=== PATIENT | female | born 1950 | race Caucasian/White ===

== ENCOUNTER 2019-02-14 14:27 | Emergency (ER) | payer BC ==
[2019-02-14] MEDS ORDERED: HYDROcodone/Acetaminophen 10/325 mg Tablet ONE (15:06)
--- NOTE | 2019-02-14 21:14 | RAD ---
LEFT SHOULDER: Date: 02-14-19 FINDINGS: Radiographs show no fracture, dislocation, or AC joint widening. There are some calcifications betwee n the acromion and humeral head that may indicate calcific tendinitis or prior trauma here. There is a little bit of bony spurring in the glenohumeral joint. IMPRESSION: Old changes as noted above. No acute findings. POS: HOME
== END 2019-02-14 15:54 | disposition home or self-care (01) ==
LOC: BURERS 14:27
DX: M25.512 Pain in left shoulder (principal); F32.9 Major depressive disorder, single episode, unspecified; E66.9 Obesity, unspecified; M19.90 Unspecified osteoarthritis, unspecified site; E11.9 Type 2 diabetes mellitus without complications; K58.9 Irritable bowel syndrome, unspecified

== ENCOUNTER 2019-08-23 12:50 | Inpatient (IN) | payer BC, MEDICARE ==
[2019-08-23] MEDS ORDERED: Dicyclomine 20 MG TAB ONE (13:08)
[2019-08-23] MEDS ORDERED: Ondansetron ODT 4 MG TAB ONE (13:08)
[2019-08-23] MEDS ORDERED: Ketorolac Tromethamine 60 MG/2 ML VIAL ONE (13:15)
[2019-08-23 13:47] LABS: #Basophils 0.1 thou/uL (0.0-0.2); #Eosinphils 0.1 thou/uL (0.0-0.7); #Lymphocytes 1.3 thou/uL (1.20-3.40); #Monocytes 1.2 thou/uL (0.11-0.59); #Neutrophils 11.1 thou/uL (1.40-6.50); %Basophils 0.7 % (0.0-1.0); %Eosinophils 0.5 % (0.0-10.0); %Lymphocytes 9.1 % (21.0-51.0); %Neutrophils 80.8 % (42.0-75.0); Hemoglobin 14.4 g/dL (12.0-16.0); Mean Corpuscular HGB CONC 33.3 g/dL (32.0-36.0); Mean Corpuscular Hemoglobin 30.5 pg (27.0-31.0); Mean Corpuscular Volume 91.7 fL (78.0-98.0); Mean Platelet Volume 6.7 fL (7.4-10.4); Platelet Count 350 thou/uL (130-400); RBC Distribution Width 14.8 % (11.5-14.5); White Blood Cell (WBC) Count 13.8 thou/uL (4.8-10.8)
[2019-08-23 14:05] LABS: ALT (SGPT) 13 U/L (8-55); AST (SGOT) 17 U/L (5-34); Albumin 3.6 g/dL (3.4-4.8); Alkaline Phosphatase 82 U/L (40-110); Anion Gap 21 mmol/L (10-20); BUN (Urea Nitrogen) 13 mg/dL (9.8-20.1); Calc. Creatinine Clearance 0 mL/min (70-130); Calcium 8.6 mg/dL (7.8-10.44); Carbon Dioxide 29 mmol/L (23-31); Chloride 99 mmol/L (98-107); Estimated GFR-MDRD 57; Globulin 2.5 g/dL (2.4-3.5); Glucose 154 mg/dL (80-115); Lipase 12 U/L (8-78); Protein, Total 6.1 g/dL (6.0-8.3); Sodium 146 mmol/L (136-145)
[2019-08-23 14:06] LABS: Potassium 2.6 mmol/L (3.5-5.1)
[2019-08-23] MEDS ORDERED: Potassium Chloride 20 MEQ TAB ONE (14:46)
[2019-08-23] MEDS ORDERED: Potassium Chloride 20 MEQ/100 ML PREMIX BAG ONE (14:46)
[2019-08-23 16:37] VITALS: BMI 54.8
[2019-08-23] MEDS ORDERED: Acetaminophen 325 MG TAB PO PRN (17:03)
[2019-08-23] MEDS ORDERED: Ondansetron PF 4 MG/2 ML Vial SLOW IVP PRN (17:03)
[2019-08-23] MEDS ORDERED: Acetaminophen 500 MG TAB PO PRN ×2 (17:41→17:52)
[2019-08-23] MEDS ORDERED: Loperamide HCl 2 MG CAP PO PRN (17:41)
[2019-08-23] MEDS ORDERED: Dulaglutide [Trulicity] 1.5 MG SC SCH (18:15)
[2019-08-23] MEDS: Sodium Chloride 0.9% 1,000 ML IV SCH ×2 (18:48→22:28)
[2019-08-23] MEDS ORDERED: Hydrocortisone 10 mg Tablet PO SCH (21:00)
[2019-08-23] MEDS ORDERED: NABUMETONE 500 MG PO SCH (21:00)
[2019-08-23] MEDS: Atorvastatin Calcium 40 MG TAB PO SCH (22:12)
[2019-08-23] MEDS: Lisinopril 20 MG TAB PO SCH (22:13)
[2019-08-23] MEDS: Acetaminophen/Codeine 30-300mg Tablet PO SCH (22:13)
[2019-08-23] MEDS: Dicyclomine 20 MG TAB PO SCH (22:13)
[2019-08-23] MEDS: Ciprofloxacin 500 MG TAB PO SCH (22:13)
[2019-08-23] MEDS: Nystatin Powder 15 GM BOT TOP PRN (22:14)
[2019-08-23] MEDS: Amlodipine 10 MG TAB PO SCH (22:30)
[2019-08-24] MEDS: Ondansetron ODT 4 MG TAB PO PRN (00:30)
--- NOTE | 2019-08-24 03:29 | HP ---
CHIEF COMPLAINT: Diarrhea. HISTORY OF PRESENT ILLNESS: A 68-year-old female, presented to the [facility] Emergency Department earlier today with complaints of generally feeling poorly for the last 3 to 4 days with complaints of abdominal cramping and gas. She reports a history of irritable bowel syndrome, diarrhea predominant. She was en route to go to her sister's house earlier today and felt worsening GI symptoms so she stopped for Imodium; however, continued to feel worse and drove herself to the emergency department. Prior to leaving her vehicle, she had fecal incontinence. Workup in the emergency department revealed the patient to have mild leukocytosis with left shift along with critical value of potassium level 2.6. Evaluation of the patient overall showed her to be disheveled with morbid obesity and numerous scattered decubitus ulcers involving bilateral buttocks and lower extremities. Secondary to the patient's deconditioned state, need for Wound Care to address her skin ulcerations and need for electrolyte repletion, she has been admitted to the floor. PAST MEDICAL HISTORY: Includes hypertension, dyslipidemia, gastroesophageal reflux disease, hypothyroidism, neuropathy, B12 deficiency, diabetes mellitus, gout, arthritis, irritable bowel syndrome, panhypopituitarism. PAST SURGICAL HISTORY: Lap band in 2007, temporary colostomy in the , and pituitary gland removal in 1987. SOCIAL HISTORY: The patient denies EtOH, smoking, or illicit drug use. She lives alone in [place] and is a . FAMILY HISTORY: Noncontributory. ALLERGIES: DOXYCYCLINE, IODINE, LORAZEPAM, MEPERIDINE, VANCOMYCIN, GUAIFENESIN. HOME MEDICATIONS: 1. Potassium chloride 20 mEq p.o. daily. 2. Trulicity 1.5 mg subcutaneously once a week. 3. Levothyroxine 137 mcg daily. 4. Methocarbamol 750 mg q.4 hours p.r.n. 5. Atorvastatin 40 mg at bedtime. 6. Amlodipine 10 mg daily. 7. Tylenol with codeine 1 tab q.8 hours. 8. Cortef 20 mg q.a.m. 9. Lisinopril 20 mg daily. 10. Allopurinol 200 mg daily. 11. Omeprazole 20 mg daily. 12. Nabumetone 500 mg b.i.d. 13. Magnesium oxide 400 mg daily. 14. Imodium 2 mg p.r.n. 15. Cortef 10 mg at bedtime. 16. Gabapentin 300 mg b.i.d. 17. Ergocalciferol 5000 units daily. 18. Vitamin B12 50 mcg daily. 19. Tylenol 150 mg q.6 hours p.r.n. 20. Hydrochlorothiazide 12.5 mg daily. REVIEW OF SYSTEMS: GENERAL: The patient denies fever. Complaints of fatigue. EARS, NOSE, AND THROAT: Denies sore throat, nasal drainage, or congestion. CARDIOVASCULAR: Denies chest pain or palpitations. RESPIRATORY: Denies shortness of breath or cough. GASTROINTESTINAL: Complains of abdominal pain, nausea, vomiting, and diarrhea. Denies constipation. GENITOURINARY: Denies dysuria. MUSCULOSKELETAL: Complains of chronic joint pain. DERMATOLOGIC: Complaints of multiple decubitus ulcers. NEUROLOGIC: Denies headache. LABORATORY DATA: White blood cell count 13.8, hemoglobin 14.4, hematocrit 43.1, platelets 350. Sodium 146, potassium 2.6, BUN 13, creatinine 0.97, GFR is 57, glucose 154, AST 17, ALT 13, lipase is 12. PHYSICAL EXAMINATION: VITAL SIGNS: Temperature is 98.1, heart rate 70, respiratory rate is 18, oxygen is 97% on room air, blood pressure is 147/63. GENERAL: The patient is morbidly obese with a disheveled appearance. NECK: Supple without lymphadenopathy. CARDIOVASCULAR: Regular rate and rhythm. Normal S1 and S2. RESPIRATORY: Clear to auscultation bilaterally without wheezes, rales, or rhonchi. ABDOMEN: Protuberant with a palpated seroma to the central abdomen. She is mildly tender to the left lower quadrant with no rebound or guarding. EXTREMITIES: Nonpitting edema. No clubbing or cyanosis. SKIN: Intertriginous erythematous rash under her pannus. She has scattered ulcerations to the thighs and buttocks. NEUROLOGIC: Nonfocal with cranial nerves 2 through 12 grossly intact. She has generalized weakness. ASSESSMENT AND PLAN: 1. Hypokalemia. The patient received potassium in the emergency department. We will continue repletion and re-evaluate her labs tomorrow. 2. Diarrhea. This is possibly secondary to the patient's chronic irritable bowel syndrome, diarrhea predominant condition; however, I cannot rule out an infectious etiology at this point secondary to the patient's leukocytosis with left shift. Stool cultures have been ordered along with screening for Clostridium difficile. She has been started on a probiotic with p.r.n. Imodium and ciprofloxacin. She will be continued on normal saline at 75 mL an hour overnight. She will have Zofran p.r.n. nausea. We will also provide Bentyl to serve as an antispasmodic for her gastrointestinal tract. 3. Skin ulcers. We will provide routine wound care. 4. Candidal intertrigo. We will provide nystatin topical powder. 5. Physical deconditioning. We will order Physical Therapy and Occupational therapy. 6. Morbid obesity. The patient does not appear to be a good candidate to provide satisfactory care by herself in her home setting. She has had a prior lap band surgery; however, remains morbidly obese with poor functional status. We will seek Hydroelectric Plant Mechanical Engineer evaluation for potential placement of patient to [place] when able to discharge. 7. Hypertension. The patient is hemodynamically stable. We will resume her home blood pressure medications. 8. Dyslipidemia. We will resume statin therapy. 9. Hypothyroidism. We will resume levothyroxine. 10. Arthritis. The patient is on Tylenol with codeine and is followed by Dr. Thurston for pain management, epidural steroid injections. DISPOSITION: We will seek placement of patient once she is cleared by Therapy, and her electrolytes have normalized along with containment of her diarrheal illness. CODE STATUS: Full. Job ID: [id number] MTDD
[2019-08-24] MEDS: Acetaminophen/Codeine 30-300mg Tablet PO SCH ×3 (05:48→21:33)
[2019-08-24] MEDS: Ciprofloxacin 500 MG TAB PO SCH ×2 (05:48→21:03)
[2019-08-24] MEDS: Levothyroxine Sodium 25 MCG TAB PO SCH (05:48)
[2019-08-24] MEDS: Levothyroxine Sodium 112 MCG TAB PO SCH (05:48)
[2019-08-24 05:50] LABS: #Basophils 0.1 thou/uL (0.0-0.2); #Eosinphils 0.2 thou/uL (0.0-0.7); #Lymphocytes 1.7 thou/uL (1.20-3.40); #Monocytes 0.9 thou/uL (0.11-0.59); #Neutrophils 5.7 thou/uL (1.40-6.50); %Eosinophils 1.8 % (0.0-10.0); %Lymphocytes 19.6 % (21.0-51.0); %Monocytes 10.1 % (0.0-10.0); %Neutrophils 67.5 % (42.0-75.0); Hemoglobin 12.5 g/dL (12.0-16.0); Mean Corpuscular HGB CONC 32.3 g/dL (32.0-36.0); Mean Corpuscular Hemoglobin 30.2 pg (27.0-31.0); Mean Corpuscular Volume 93.3 fL (78.0-98.0); Mean Platelet Volume 6.7 fL (7.4-10.4); Platelet Count 297 thou/uL (130-400); RBC Distribution Width 15.1 % (11.5-14.5); Red Blood Cell (RBC) Count 4.16 mill/uL (4.20-5.40); White Blood Cell (WBC) Count 8.5 thou/uL (4.8-10.8)
[2019-08-24 06:01] LABS: ALT (SGPT) 13 U/L (8-55); AST (SGOT) 14 U/L (5-34); Albumin 3.2 g/dL (3.4-4.8); Alkaline Phosphatase 69 U/L (40-110); Anion Gap 15 mmol/L (10-20); BUN (Urea Nitrogen) 10 mg/dL (9.8-20.1); Bilirubin, Total 0.9 mg/dL (0.2-1.2); Calc. Creatinine Clearance 143 mL/min (70-130); Calcium 7.9 mg/dL (7.8-10.44); Carbon Dioxide 30 mmol/L (23-31); Chloride 102 mmol/L (98-107); Estimated GFR-MDRD 69; Globulin 2.1 g/dL (2.4-3.5); Glucose 112 mg/dL (80-115); Protein, Total 5.3 g/dL (6.0-8.3); Sodium 144 mmol/L (136-145)
[2019-08-24] MEDS ORDERED: Potassium Chloride 20 MEQ TAB PO SCH ×2 (08:00→14:00)
[2019-08-24] MEDS: Potassium Chloride 20 MEQ TAB PO SCH (08:38)
[2019-08-24] MEDS ORDERED: Amlodipine 10 MG TAB PO SCH (09:00)
[2019-08-24] MEDS ORDERED: Hydrocortisone 10 mg Tablet PO SCH (09:00)
[2019-08-24] MEDS ORDERED: Non-Formulary Item 1 EACH (Levothyroxine Sodium [Levothyroxine Sodium] 137 MCG) PO SCH (09:00)
[2019-08-24] MEDS ORDERED: Magnesium Oxide 400 MG TAB PO SCH (09:00)
[2019-08-24] MEDS: Allopurinol 100 MG TAB PO SCH (09:38)
[2019-08-24] MEDS: Dicyclomine 20 MG TAB PO SCH ×4 (09:39→21:02)
[2019-08-24] MEDS: Saccharomyces boulardii 250 MG CAP PO SCH (09:40)
[2019-08-24] MEDS: Enoxaparin Sodium 40 MG/0.4 ML SYRINGE SC SCH (09:40)
[2019-08-24] MEDS: METHOCARBAMOL 750 MG PO PRN ×2 (10:39→18:54)
[2019-08-24] MEDS ORDERED: HYDROCORTISONE 10 MG PO SCH (16:00)
[2019-08-24] MEDS: HYDROCORTISONE 10 MG PO SCH (18:50)
[2019-08-24] MEDS: Amlodipine 10 MG TAB PO SCH (21:02)
[2019-08-24] MEDS: Lisinopril 20 MG TAB PO SCH (21:03)
[2019-08-24] MEDS: Atorvastatin Calcium 40 MG TAB PO SCH (21:03)
[2019-08-24] MEDS: Nystatin Powder 15 GM BOT TOP PRN (21:06)
[2019-08-25 04:33] LABS: #Basophils 0.1 thou/uL (0.0-0.2); #Eosinphils 0.3 thou/uL (0.0-0.7); #Lymphocytes 1.8 thou/uL (1.20-3.40); #Monocytes 0.8 thou/uL (0.11-0.59); #Neutrophils 4.8 thou/uL (1.40-6.50); %Basophils 1.4 % (0.0-1.0); %Eosinophils 3.3 % (0.0-10.0); %Lymphocytes 23.6 % (21.0-51.0); %Monocytes 10.3 % (0.0-10.0); %Neutrophils 61.4 % (42.0-75.0); Hemoglobin 12.4 g/dL (12.0-16.0); Mean Corpuscular HGB CONC 31.7 g/dL (32.0-36.0); Mean Corpuscular Hemoglobin 29.9 pg (27.0-31.0); Mean Corpuscular Volume 94.4 fL (78.0-98.0); Mean Platelet Volume 6.5 fL (7.4-10.4); Platelet Count 315 thou/uL (130-400); Red Blood Cell (RBC) Count 4.14 mill/uL (4.20-5.40); White Blood Cell (WBC) Count 7.8 thou/uL (4.8-10.8)
[2019-08-25 04:41] LABS: Anion Gap 17 mmol/L (10-20); BUN (Urea Nitrogen) 8 mg/dL (9.8-20.1); Calc. Creatinine Clearance 129 mL/min (70-130); Calcium 8.1 mg/dL (7.8-10.44); Carbon Dioxide 27 mmol/L (23-31); Chloride 105 mmol/L (98-107); Estimated GFR-MDRD 61; Glucose 112 mg/dL (80-115); Potassium 3.5 mmol/L (3.5-5.1); Sodium 145 mmol/L (136-145)
[2019-08-25] MEDS: Acetaminophen/Codeine 30-300mg Tablet PO SCH ×3 (06:22→21:31)
[2019-08-25] MEDS: Levothyroxine Sodium 112 MCG TAB PO SCH (06:22)
[2019-08-25] MEDS: Levothyroxine Sodium 25 MCG TAB PO SCH (06:22)
[2019-08-25] MEDS: Ciprofloxacin 500 MG TAB PO SCH ×2 (06:22→19:53)
[2019-08-25] MEDS: Saccharomyces boulardii 250 MG CAP PO SCH (08:13)
[2019-08-25] MEDS: Dicyclomine 20 MG TAB PO SCH ×4 (08:14→19:52)
[2019-08-25] MEDS: Allopurinol 100 MG TAB PO SCH (08:14)
[2019-08-25] MEDS: Potassium Chloride 20 MEQ TAB PO SCH (08:15)
[2019-08-25] MEDS: Enoxaparin Sodium 40 MG/0.4 ML SYRINGE SC SCH (08:18)
[2019-08-25] MEDS: HYDROCORTISONE 10 MG PO SCH ×2 (08:25→17:56)
[2019-08-25] MEDS ORDERED: HYDROCORTISONE 10 MG PO SCH (15:00)
[2019-08-25] MEDS: Atorvastatin Calcium 40 MG TAB PO SCH (19:52)
[2019-08-25] MEDS: Lisinopril 20 MG TAB PO SCH (19:52)
[2019-08-25] MEDS: Amlodipine 10 MG TAB PO SCH (19:53)
[2019-08-25] MEDS: METHOCARBAMOL 750 MG PO PRN (21:31)
[2019-08-26 04:55] LABS: Hemoglobin 12.5 g/dL (12.0-16.0); Platelet Count 216 thou/uL (130-400)
[2019-08-26 05:04] LABS: Anion Gap 17 mmol/L (10-20); BUN (Urea Nitrogen) 9 mg/dL (9.8-20.1); Calc. Creatinine Clearance 140 mL/min (70-130); Calcium 8.3 mg/dL (7.8-10.44); Carbon Dioxide 21 mmol/L (23-31); Chloride 108 mmol/L (98-107); Estimated GFR-MDRD 67; Glucose 120 mg/dL (80-115); Potassium 4.4 mmol/L (3.5-5.1); Sodium 142 mmol/L (136-145)
[2019-08-26] MEDS: Levothyroxine Sodium 25 MCG TAB PO SCH (05:44)
[2019-08-26] MEDS: Ciprofloxacin 500 MG TAB PO SCH (05:44)
[2019-08-26] MEDS: Acetaminophen/Codeine 30-300mg Tablet PO SCH ×3 (05:44→20:59)
[2019-08-26] MEDS: Levothyroxine Sodium 112 MCG TAB PO SCH (05:44)
[2019-08-26] MEDS: Potassium Chloride 20 MEQ TAB PO SCH (08:57)
[2019-08-26] MEDS: Saccharomyces boulardii 250 MG CAP PO SCH (08:57)
[2019-08-26] MEDS: Allopurinol 100 MG TAB PO SCH (08:58)
[2019-08-26] MEDS: Dicyclomine 20 MG TAB PO SCH ×4 (08:58→20:58)
[2019-08-26] MEDS: Enoxaparin Sodium 40 MG/0.4 ML SYRINGE SC SCH (08:58)
[2019-08-26] MEDS: HYDROCORTISONE 10 MG PO SCH ×2 (08:59→18:22)
[2019-08-26] MEDS: Ondansetron ODT 4 MG TAB PO PRN (09:40)
[2019-08-26] MEDS: METHOCARBAMOL 750 MG PO PRN (12:36)
[2019-08-26] MEDS ORDERED: Polyethylene Glycol 3350 17 GM Packet PO SCH (17:15)
[2019-08-26] MEDS: Amlodipine 10 MG TAB PO SCH (20:58)
[2019-08-26] MEDS: Atorvastatin Calcium 40 MG TAB PO SCH (20:58)
[2019-08-26] MEDS: Lisinopril 20 MG TAB PO SCH (21:00)
[2019-08-27] MEDS: Acetaminophen/Codeine 30-300mg Tablet PO SCH ×2 (05:37→13:33)
[2019-08-27] MEDS: Levothyroxine Sodium 112 MCG TAB PO SCH (05:39)
[2019-08-27] MEDS: Levothyroxine Sodium 25 MCG TAB PO SCH (05:39)
[2019-08-27 06:01] LABS: #Basophils 0.1 thou/uL (0.0-0.2); #Eosinphils 0.2 thou/uL (0.0-0.7); #Monocytes 0.7 thou/uL (0.11-0.59); #Neutrophils 4.7 thou/uL (1.40-6.50); %Basophils 1.2 % (0.0-1.0); %Eosinophils 2.8 % (0.0-10.0); %Lymphocytes 25.5 % (21.0-51.0); %Monocytes 9.6 % (0.0-10.0); %Neutrophils 60.9 % (42.0-75.0); Hemoglobin 12.8 g/dL (12.0-16.0); Mean Corpuscular HGB CONC 30.9 g/dL (32.0-36.0); Mean Corpuscular Hemoglobin 29.3 pg (27.0-31.0); Mean Corpuscular Volume 94.9 fL (78.0-98.0); Mean Platelet Volume 6.7 fL (7.4-10.4); Platelet Count 300 thou/uL (130-400); RBC Distribution Width 14.9 % (11.5-14.5); Red Blood Cell (RBC) Count 4.37 mill/uL (4.20-5.40); White Blood Cell (WBC) Count 7.8 thou/uL (4.8-10.8)
[2019-08-27 06:06] LABS: Anion Gap 16 mmol/L (10-20); BUN (Urea Nitrogen) 9 mg/dL (9.8-20.1); Calc. Creatinine Clearance 138 mL/min (70-130); Calcium 8.8 mg/dL (7.8-10.44); Carbon Dioxide 26 mmol/L (23-31); Chloride 104 mmol/L (98-107); Estimated GFR-MDRD 63; Glucose 111 mg/dL (80-115); Potassium 4.5 mmol/L (3.5-5.1); Sodium 141 mmol/L (136-145)
[2019-08-27 06:42] VITALS: BP 154/78; TEMP 98.2
[2019-08-27] MEDS ORDERED: Polyethylene Glycol 3350 17 GM Packet PO SCH (09:00)
[2019-08-27] MEDS: Potassium Chloride 20 MEQ TAB PO SCH (09:54)
[2019-08-27] MEDS: Allopurinol 100 MG TAB PO SCH (09:55)
[2019-08-27] MEDS: HYDROCORTISONE 10 MG PO SCH (10:00)
[2019-08-27] MEDS: Saccharomyces boulardii 250 MG CAP PO SCH (10:57)
[2019-08-27] MEDS: Dicyclomine 20 MG TAB PO SCH ×2 (10:57→13:35)
[2019-08-27] MEDS: Enoxaparin Sodium 40 MG/0.4 ML SYRINGE SC SCH (10:57)
[2019-08-29] MEDS ORDERED: Dulaglutide [Trulicity] 1.5 MG SC SCH (09:00)
--- NOTE | 2019-08-30 03:52 | PQF ---
[employer] Solar Electric Installer Crystal Reports Winform ViewerREESE ANDREI GIULIA FUENTES [id number] CLINICAL DOCUMENTATION CLARIFICATION FORM: POST DISCHARGE Addendum to original discharge summary date: 08/27/19 Late entry note date: 08/30/19 DATE:08/30/2019 ATTN:GIULIA SPEARS Please exercise your independent, professional judgment in responding to the clarification form. Clinical indicators are provided on the bottom of this form for your review Please check appropriate box(s): Kindly Clarify Etiology of diarrhea [ x] Diarrhea due to Irritable bowel syndrome [ ] Diarrhea due to Infectious colitis due to clostridium difficile [ ] Diarrhea due to Viral gastroenteritis [ ] Other diagnosis [ ] Unable to determine In addition, please specify: Present on Admission (POA): [x ] Yes [ ] No [ ] Unable to determine For continuity of documentation, please document condition throughout progress notes and discharge summary. Thank You. CLINICAL INDICATORS - SIGNS / SYMPTOMS / LABS Feeling poorly for the last 3 to 4 days with complaint of abdominal cramping and gas - Documented in H&P on 08/23 by GIULIA SPEARS diarrhea possibly 2/2 chronic IBS - Documented in H&P on 08/23 by GIULIA SPEARS however cannot rule out an infectious etiology 2/2 leukocytosis with left shift - Documented in H&P on 08/23 by GIULIA SPEARS Also stool cultures have been ordered along with screening for clostridium difficile - Documented in H&P on 08/23 by GIULIA SPEARS RISK FACTORS HTN GERD TREATMENTS: started on a probiotic with p.r.n Imodium & ciprofloxacin - Documented in H&P on 08/23 by GIULIA SPEARS She will be continued on normal saline at 75 ml an hour - Documented in H&P on 08/23 by GIULIA SPEARS We also provide Bentyl to severe as an antispasmodic for her GI tract - Documented in H&P on 08/23 by GIULIA SPEARS Solar Electric Installer [employer] Winform Viewer (This form is maintained as a part of the permanent medical record) 2014 [employer]. All Rights Reserved [email or web address] [not provided] MTDD
--- NOTE | 2019-08-30 04:21 | PQF ---
[employer] Database Security Expert Crystal Reports Winform ViewerREESE GIULIA BRUCE [id number] CLINICAL DOCUMENTATION CLARIFICATION FORM: POST DISCHARGE Addendum to original discharge summary date: 08/27/19 Late entry note date: 08/30/19 DATE: 08/30/2019 ATTN:GIULIA SPEARS Please exercise your independent, professional judgment in responding to the clarification form. Clinical indicators are provided on the bottom of this form for your review Please check appropriate box(s): ____x___ I (concur) with the Wound Care findings as stated below. [ ] Pressure Ulcer: (Stage I: Erythema; Stage II: Partial thickness; Stage III : Full thickness; Stage IV: Necrosis to muscle/bone) [ ] Location: Thighs POA: [ x ] Yes [ ] No[ ] Unable to determine Stage (I to IV): (Left Right Bilateral N/A ) [ ] Location: Buttocks POA: [ x ] Yes [ ] No [ ] Unable to determine Stage (I to IV): (Left Right___x__ Bilateral N/A ) [ ] Gangrene present [ ] Yes [ ] ischemic gangrene [ ] gas gangrene [ ] No [ ] No pressure ulcer diagnosis [ ] Deep tissue injury [ ] Other diagnosis [ ] Unable to determine In addition, please specify: Present on Admission (POA): [x ] Yes [ ] No [ ] Unable to determine For continuity of documentation, please document condition throughout progress notes and discharge summary. Thank You. CLINICAL INDICATORS - SIGNS / SYMPTOMS / LABS She has scattered ulceration to the thighs and buttocks - Documented in H&P on 08/23 by GIULIA SPEARS Patient has abdominal and bilateral upper and lower extremity folds with noted redness and moisture - Documented in ED report pg#4 Posterior buttocks and inner thighs very reddened with numerous open wound to both buttock and lateral thighs - Documented in ED report pg#4 Multiple decubitus on b/l LE posterior thighs in various sizes and stages of healing, minimal surrounding erythema,no deep infections or surrounding cellulitis or discharge - Documented in ED report pg#4 RISK FACTORS: Skin ulcers HTN Morbid Obesity - Documented in H&P on 08/23 by GIULIA SPEARS TREATMENTS: We will provide routine wound care - Documented in H&P on 08/23 by GIULIA SPEARS (This form is maintained as a part of the permanent medical record) 2014 [employer] All Rights Reserved [email or web address] [not provided] HANNY
== END 2019-08-27 14:20 | disposition swing bed (61) | DRG 392 ==
LOC: BURERS 12:50 → BURMED 14:47
PROVIDERS: ADMIT Family Medicine; ATTEND Family Medicine
DX: K58.0 Irritable bowel syndrome with diarrhea (principal); Z68.43 Body mass index [BMI] 50.0-59.9, adult; E87.6 Hypokalemia; K58.9 Irritable bowel syndrome, unspecified; I10 Essential (primary) hypertension; E78.5 Hyperlipidemia, unspecified; K21.9 Gastro-esophageal reflux disease without esophagitis; E03.9 Hypothyroidism, unspecified; M10.9 Gout, unspecified; M19.91 Primary osteoarthritis, unspecified site; Z98.890 Other specified postprocedural states; E66.01 Morbid (severe) obesity due to excess calories; D72.829 Elevated white blood cell count, unspecified; Z88.6 Allergy status to analgesic agent; L30.4 Erythema intertrigo; Z91.041 Radiographic dye allergy status; Z88.8 Allergy status to other drugs, medicaments and biological substances; E11.622 Type 2 diabetes mellitus with other skin ulcer; R53.81 Other malaise; L89.329 Pressure ulcer of left buttock, unspecified stage; L89.319 Pressure ulcer of right buttock, unspecified stage; L89.899 Pressure ulcer of other site, unspecified stage; E11.40 Type 2 diabetes mellitus with diabetic neuropathy, unspecified
CPT/HCPCS: 36415; 36416; 80048; 80053; 83690; 85014; 85018; 85025; 85049; 96365; 96372; 97602; J1650; J1885; J2405; J3480; Q0162

== ENCOUNTER 2019-08-27 14:21 | Inpatient (IN) | payer BC, MEDICARE ==
[2019-08-27] MEDS ORDERED: Loperamide HCl 2 MG CAP PO PRN (15:54)
[2019-08-27] MEDS ORDERED: Acetaminophen 500 MG TAB PO PRN (15:54)
[2019-08-27] MEDS ORDERED: Ondansetron PF 4 MG/2 ML Vial IVP PRN (15:55)
[2019-08-27] MEDS ORDERED: TRULICITY INJ SC SCH (16:00)
[2019-08-27] MEDS: ROBAXIN PO PRN (16:12)
[2019-08-27] MEDS: Dicyclomine 20 MG TAB PO SCH ×2 (18:14→20:48)
[2019-08-27] MEDS: Lisinopril 20 MG TAB PO SCH (20:45)
[2019-08-27] MEDS: Acetaminophen/Codeine 30-300mg Tablet PO SCH (20:46)
[2019-08-27] MEDS: Atorvastatin Calcium 40 MG TAB PO SCH (20:48)
[2019-08-28] MEDS: Levothyroxine Sodium 25 MCG TAB PO SCH (05:43)
[2019-08-28] MEDS: Levothyroxine Sodium 112 MCG TAB PO SCH (05:43)
[2019-08-28] MEDS: Acetaminophen/Codeine 30-300mg Tablet PO SCH ×3 (05:43→21:52)
[2019-08-28 06:51] LABS: Hemoglobin 13.1 g/dL (12.0-16.0); Platelet Count 292 thou/uL (130-400)
[2019-08-28] MEDS ORDERED: Adacel (T-DAP) 0.5 ML SYRINGE ONE (08:12)
[2019-08-28] MEDS: Potassium Chloride 20 MEQ TAB PO SCH (09:50)
[2019-08-28] MEDS: Dicyclomine 20 MG TAB PO SCH ×4 (09:50→21:53)
[2019-08-28] MEDS: Polyethylene Glycol 3350 17 GM Packet PO SCH (09:50)
[2019-08-28] MEDS: Saccharomyces boulardii 250 MG CAP PO SCH (09:50)
[2019-08-28] MEDS: Allopurinol 100 MG TAB PO SCH (09:50)
[2019-08-28] MEDS: Enoxaparin Sodium 40 MG/0.4 ML SYRINGE SC SCH (09:51)
[2019-08-28] MEDS: Hydrocortisone 10 mg Tablet PO SCH ×2 (09:53→15:50)
[2019-08-28] MEDS: ROBAXIN PO PRN (13:32)
[2019-08-28] MEDS: Amlodipine 10 MG TAB PO SCH (21:54)
[2019-08-28] MEDS: Atorvastatin Calcium 40 MG TAB PO SCH (21:56)
[2019-08-28] MEDS: Lisinopril 20 MG TAB PO SCH (21:56)
[2019-08-28] MEDS: Milk Of Magnesia 30 ML UDCUP PO PRN (21:56)
[2019-08-29] MEDS: Acetaminophen/Codeine 30-300mg Tablet PO SCH ×3 (05:34→21:00)
[2019-08-29] MEDS: Levothyroxine Sodium 112 MCG TAB PO SCH (05:34)
[2019-08-29] MEDS: Levothyroxine Sodium 25 MCG TAB PO SCH (05:34)
[2019-08-29] MEDS: Dicyclomine 20 MG TAB PO SCH ×4 (09:31→20:56)
[2019-08-29] MEDS: Saccharomyces boulardii 250 MG CAP PO SCH (09:31)
[2019-08-29] MEDS: Enoxaparin Sodium 40 MG/0.4 ML SYRINGE SC SCH (09:32)
[2019-08-29] MEDS: Allopurinol 100 MG TAB PO SCH (09:32)
[2019-08-29] MEDS: Potassium Chloride 20 MEQ TAB PO SCH (09:32)
[2019-08-29] MEDS: Polyethylene Glycol 3350 17 GM Packet PO SCH (09:33)
[2019-08-29] MEDS: Hydrocortisone 10 mg Tablet PO SCH ×2 (09:34→16:01)
[2019-08-29] MEDS: ROBAXIN PO PRN (09:36)
[2019-08-29] MEDS: Milk Of Magnesia 30 ML UDCUP PO PRN (14:00)
[2019-08-29] MEDS: Amlodipine 10 MG TAB PO SCH (20:56)
[2019-08-29] MEDS: Atorvastatin Calcium 40 MG TAB PO SCH (20:56)
[2019-08-29] MEDS: Lisinopril 20 MG TAB PO SCH (20:57)
[2019-08-30] MEDS: Levothyroxine Sodium 112 MCG TAB PO SCH (05:05)
[2019-08-30] MEDS: Milk Of Magnesia 30 ML UDCUP PO PRN (05:05)
[2019-08-30] MEDS: Acetaminophen/Codeine 30-300mg Tablet PO SCH ×3 (05:06→21:30)
[2019-08-30] MEDS: Levothyroxine Sodium 25 MCG TAB PO SCH (05:06)
[2019-08-30 05:50] LABS: Hemoglobin 13.6 g/dL (12.0-16.0); Platelet Count 309 thou/uL (130-400)
[2019-08-30] MEDS ORDERED: Bisacodyl 10 MG SUPP PR PRN (07:34)
[2019-08-30] MEDS: Polyethylene Glycol 3350 17 GM Packet PO SCH (09:04)
[2019-08-30] MEDS: Enoxaparin Sodium 40 MG/0.4 ML SYRINGE SC SCH (09:04)
[2019-08-30] MEDS: Saccharomyces boulardii 250 MG CAP PO SCH (09:05)
[2019-08-30] MEDS: Allopurinol 100 MG TAB PO SCH (09:06)
[2019-08-30] MEDS: Dicyclomine 20 MG TAB PO SCH ×4 (09:06→20:50)
[2019-08-30] MEDS: Potassium Chloride 20 MEQ TAB PO SCH (09:07)
[2019-08-30] MEDS: Hydrocortisone 10 mg Tablet PO SCH ×2 (09:20→16:31)
[2019-08-30] MEDS ORDERED: TRULICITY INJ SC SCH (17:00)
[2019-08-30] MEDS ORDERED: Hydrocortisone 10 mg Tablet PO SCH (17:00)
[2019-08-30] MEDS: Lisinopril 20 MG TAB PO SCH (20:49)
[2019-08-30] MEDS: Amlodipine 10 MG TAB PO SCH (20:50)
[2019-08-30] MEDS: Atorvastatin Calcium 40 MG TAB PO SCH (20:50)
[2019-08-31] MEDS: ROBAXIN PO PRN ×3 (01:20→16:10)
[2019-08-31] MEDS: Levothyroxine Sodium 25 MCG TAB PO SCH (05:49)
[2019-08-31] MEDS: Levothyroxine Sodium 112 MCG TAB PO SCH (05:49)
[2019-08-31] MEDS: Acetaminophen/Codeine 30-300mg Tablet PO SCH ×3 (05:49→21:05)
[2019-08-31] MEDS ORDERED: Hydrocortisone 10 mg Tablet PO SCH ×2 (08:00→17:00)
[2019-08-31] MEDS: Polyethylene Glycol 3350 17 GM Packet PO SCH (08:40)
[2019-08-31] MEDS: Enoxaparin Sodium 40 MG/0.4 ML SYRINGE SC SCH (08:40)
[2019-08-31] MEDS: Saccharomyces boulardii 250 MG CAP PO SCH (08:40)
[2019-08-31] MEDS: Potassium Chloride 20 MEQ TAB PO SCH (08:41)
[2019-08-31] MEDS: Dicyclomine 20 MG TAB PO SCH ×4 (08:42→21:04)
[2019-08-31] MEDS: Allopurinol 100 MG TAB PO SCH (08:42)
[2019-08-31] MEDS: HYDROCORTISONE 10 MG TAB PO SCH (16:09)
[2019-08-31] MEDS: Amlodipine 10 MG TAB PO SCH (21:03)
[2019-08-31] MEDS: Atorvastatin Calcium 40 MG TAB PO SCH (21:04)
[2019-08-31] MEDS: Lisinopril 20 MG TAB PO SCH (21:05)
[2019-09-01] MEDS: Acetaminophen/Codeine 30-300mg Tablet PO SCH ×3 (05:26→21:45)
[2019-09-01] MEDS: Levothyroxine Sodium 25 MCG TAB PO SCH (05:28)
[2019-09-01] MEDS: Levothyroxine Sodium 112 MCG TAB PO SCH (05:28)
[2019-09-01 05:45] LABS: Platelet Count 311 thou/uL (130-400)
[2019-09-01 05:56] VITALS: BMI 57.2
[2019-09-01] MEDS: HYDROCORTISONE 10 MG TAB PO SCH ×2 (08:56→16:47)
[2019-09-01] MEDS: Allopurinol 100 MG TAB PO SCH (08:59)
[2019-09-01] MEDS: Polyethylene Glycol 3350 17 GM Packet PO SCH (09:00)
[2019-09-01] MEDS: Dicyclomine 20 MG TAB PO SCH ×4 (09:00→21:45)
[2019-09-01] MEDS: Potassium Chloride 20 MEQ TAB PO SCH (09:00)
[2019-09-01] MEDS: Saccharomyces boulardii 250 MG CAP PO SCH (09:00)
[2019-09-01] MEDS: Enoxaparin Sodium 40 MG/0.4 ML SYRINGE SC SCH (09:01)
[2019-09-01] MEDS: Nystatin Powder 15 GM BOT TOP PRN (09:05)
[2019-09-01] MEDS: Senokot S 8.6-50 MG TAB PO PRN (09:08)
[2019-09-01] MEDS: Atorvastatin Calcium 40 MG TAB PO SCH (21:44)
[2019-09-01] MEDS: Lisinopril 20 MG TAB PO SCH (21:46)
[2019-09-01] MEDS: Amlodipine 10 MG TAB PO SCH (21:52)
[2019-09-01] MEDS: ROBAXIN PO PRN (21:54)
[2019-09-02] MEDS: Levothyroxine Sodium 112 MCG TAB PO SCH (06:22)
[2019-09-02] MEDS: Levothyroxine Sodium 25 MCG TAB PO SCH (06:22)
[2019-09-02] MEDS: Acetaminophen/Codeine 30-300mg Tablet PO SCH ×3 (06:23→22:21)
[2019-09-02] MEDS: HYDROCORTISONE 10 MG TAB PO SCH ×3 (08:47→17:29)
[2019-09-02] MEDS: Polyethylene Glycol 3350 17 GM Packet PO SCH (09:06)
[2019-09-02] MEDS: Enoxaparin Sodium 40 MG/0.4 ML SYRINGE SC SCH (09:06)
[2019-09-02] MEDS: Allopurinol 100 MG TAB PO SCH (09:07)
[2019-09-02] MEDS: Potassium Chloride 20 MEQ TAB PO SCH (09:07)
[2019-09-02] MEDS: Dicyclomine 20 MG TAB PO SCH ×4 (09:08→22:15)
[2019-09-02] MEDS: Saccharomyces boulardii 250 MG CAP PO SCH (09:08)
[2019-09-02] MEDS: ROBAXIN PO PRN (17:27)
[2019-09-02] MEDS: Lisinopril 20 MG TAB PO SCH (22:15)
[2019-09-02] MEDS: Amlodipine 10 MG TAB PO SCH (22:15)
[2019-09-02] MEDS: Atorvastatin Calcium 40 MG TAB PO SCH (22:15)
[2019-09-02] MEDS: Senokot S 8.6-50 MG TAB PO PRN (22:16)
[2019-09-03 04:58] LABS: Hemoglobin 13.4 g/dL (12.0-16.0); Platelet Count 292 thou/uL (130-400)
[2019-09-03] MEDS: Acetaminophen/Codeine 30-300mg Tablet PO SCH ×3 (05:37→22:28)
[2019-09-03] MEDS: Levothyroxine Sodium 112 MCG TAB PO SCH (05:37)
[2019-09-03] MEDS: Levothyroxine Sodium 25 MCG TAB PO SCH (05:37)
[2019-09-03] MEDS: Ondansetron ODT 4 MG TAB PO PRN (07:34)
[2019-09-03] MEDS: Allopurinol 100 MG TAB PO SCH (08:13)
[2019-09-03] MEDS: Potassium Chloride 20 MEQ TAB PO SCH (08:13)
[2019-09-03] MEDS: Saccharomyces boulardii 250 MG CAP PO SCH (08:13)
[2019-09-03] MEDS: Polyethylene Glycol 3350 17 GM Packet PO SCH (08:13)
[2019-09-03] MEDS: Enoxaparin Sodium 40 MG/0.4 ML SYRINGE SC SCH (08:14)
[2019-09-03] MEDS: HYDROCORTISONE 10 MG TAB PO SCH ×2 (08:17→17:51)
[2019-09-03] MEDS: Dicyclomine 20 MG TAB PO SCH ×4 (11:45→22:28)
[2019-09-03] MEDS: ROBAXIN PO PRN (14:21)
[2019-09-03] MEDS: Amlodipine 10 MG TAB PO SCH (22:27)
[2019-09-03] MEDS: Atorvastatin Calcium 40 MG TAB PO SCH (22:27)
[2019-09-03] MEDS: Lisinopril 20 MG TAB PO SCH (22:28)
[2019-09-03] MEDS: Senokot S 8.6-50 MG TAB PO PRN (22:30)
[2019-09-04] MEDS: Levothyroxine Sodium 112 MCG TAB PO SCH (06:12)
[2019-09-04] MEDS: Levothyroxine Sodium 25 MCG TAB PO SCH (06:12)
[2019-09-04] MEDS: Acetaminophen/Codeine 30-300mg Tablet PO SCH ×3 (06:12→21:32)
[2019-09-04] MEDS: Polyethylene Glycol 3350 17 GM Packet PO SCH (08:14)
[2019-09-04] MEDS: Enoxaparin Sodium 40 MG/0.4 ML SYRINGE SC SCH (08:15)
[2019-09-04] MEDS: Saccharomyces boulardii 250 MG CAP PO SCH (08:17)
[2019-09-04] MEDS: Dicyclomine 20 MG TAB PO SCH ×4 (08:18→21:32)
[2019-09-04] MEDS: Allopurinol 100 MG TAB PO SCH (08:18)
[2019-09-04] MEDS: Potassium Chloride 20 MEQ TAB PO SCH (08:18)
[2019-09-04] MEDS: HYDROCORTISONE 10 MG TAB PO SCH ×2 (08:24→16:46)
[2019-09-04] MEDS: ROBAXIN PO PRN (13:42)
[2019-09-04] MEDS: Amlodipine 10 MG TAB PO SCH (21:31)
[2019-09-04] MEDS: Atorvastatin Calcium 40 MG TAB PO SCH (21:31)
[2019-09-04] MEDS: Lisinopril 20 MG TAB PO SCH (21:31)
[2019-09-04] MEDS: Nystatin Powder 15 GM BOT TOP PRN (21:47)
[2019-09-05 05:04] LABS: Hemoglobin 12.9 g/dL (12.0-16.0); Platelet Count 258 thou/uL (130-400)
[2019-09-05] MEDS: Levothyroxine Sodium 112 MCG TAB PO SCH (06:10)
[2019-09-05] MEDS: Levothyroxine Sodium 25 MCG TAB PO SCH (06:10)
[2019-09-05] MEDS: Acetaminophen/Codeine 30-300mg Tablet PO SCH ×3 (06:11→21:17)
[2019-09-05] MEDS ORDERED: TRULICITY INJ SC SCH ×2 (09:00)
[2019-09-05] MEDS: Saccharomyces boulardii 250 MG CAP PO SCH (09:07)
[2019-09-05] MEDS: Enoxaparin Sodium 40 MG/0.4 ML SYRINGE SC SCH (09:07)
[2019-09-05] MEDS: Allopurinol 100 MG TAB PO SCH (09:08)
[2019-09-05] MEDS: Dicyclomine 20 MG TAB PO SCH ×4 (09:08→21:17)
[2019-09-05] MEDS: Potassium Chloride 20 MEQ TAB PO SCH (09:08)
[2019-09-05] MEDS: Polyethylene Glycol 3350 17 GM Packet PO SCH (09:09)
[2019-09-05] MEDS: HYDROCORTISONE 10 MG TAB PO SCH ×2 (09:13→16:41)
[2019-09-05] MEDS: ROBAXIN PO PRN (13:06)
[2019-09-05] MEDS: Amlodipine 10 MG TAB PO SCH (21:16)
[2019-09-05] MEDS: Lisinopril 20 MG TAB PO SCH (21:16)
[2019-09-05] MEDS: Atorvastatin Calcium 40 MG TAB PO SCH (21:16)
[2019-09-05] MEDS: Nystatin Powder 15 GM BOT TOP PRN (21:18)
[2019-09-06] MEDS: Acetaminophen/Codeine 30-300mg Tablet PO SCH ×3 (05:58→21:44)
[2019-09-06] MEDS: Levothyroxine Sodium 112 MCG TAB PO SCH (05:58)
[2019-09-06] MEDS: Levothyroxine Sodium 25 MCG TAB PO SCH (05:58)
[2019-09-06] MEDS: HYDROCORTISONE 10 MG TAB PO SCH ×2 (09:37→16:40)
[2019-09-06] MEDS: Saccharomyces boulardii 250 MG CAP PO SCH (09:39)
[2019-09-06] MEDS: Dicyclomine 20 MG TAB PO SCH ×4 (09:39→21:45)
[2019-09-06] MEDS: Potassium Chloride 20 MEQ TAB PO SCH (09:39)
[2019-09-06] MEDS: Allopurinol 100 MG TAB PO SCH (09:39)
[2019-09-06] MEDS: Enoxaparin Sodium 40 MG/0.4 ML SYRINGE SC SCH (09:43)
[2019-09-06] MEDS: Polyethylene Glycol 3350 17 GM Packet PO SCH (09:44)
[2019-09-06] MEDS ORDERED: Tetracaine 0.5% OPHTH SOLN/PF 4 ML BOT ONE (12:42)
[2019-09-06] MEDS: Senokot S 8.6-50 MG TAB PO PRN (13:33)
[2019-09-06] MEDS ORDERED: Erythromycin Base 0.5% Ophth Oint 3.5 gm Tube ONE (13:38)
[2019-09-06] MEDS ORDERED: Erythromycin Base 0.5% Ophth Oint 3.5 gm Tube R EYE SCH (13:45)
[2019-09-06] MEDS: ROBAXIN PO PRN (16:38)
[2019-09-06] MEDS ORDERED: TRULICITY INJ SC SCH (21:30)
[2019-09-06] MEDS: Amlodipine 10 MG TAB PO SCH (21:44)
[2019-09-06] MEDS: Atorvastatin Calcium 40 MG TAB PO SCH (21:44)
[2019-09-06] MEDS: Lisinopril 20 MG TAB PO SCH (21:45)
[2019-09-06] MEDS: Erythromycin Base 0.5% Ophth Oint 3.5 gm Tube R EYE SCH (21:45)
[2019-09-06] MEDS: Nystatin Powder 15 GM BOT TOP PRN (22:06)
[2019-09-07 05:06] LABS: Hemoglobin 12.6 g/dL (12.0-16.0); Platelet Count 246 thou/uL (130-400)
[2019-09-07] MEDS: Acetaminophen/Codeine 30-300mg Tablet PO SCH ×3 (05:38→21:58)
[2019-09-07] MEDS: Levothyroxine Sodium 112 MCG TAB PO SCH (05:38)
[2019-09-07] MEDS: Levothyroxine Sodium 25 MCG TAB PO SCH (05:38)
[2019-09-07] MEDS: Erythromycin Base 0.5% Ophth Oint 3.5 gm Tube R EYE SCH ×2 (09:28→21:57)
[2019-09-07] MEDS: Allopurinol 100 MG TAB PO SCH (09:28)
[2019-09-07] MEDS: Dicyclomine 20 MG TAB PO SCH ×4 (09:28→21:58)
[2019-09-07] MEDS: Saccharomyces boulardii 250 MG CAP PO SCH (09:28)
[2019-09-07] MEDS: Potassium Chloride 20 MEQ TAB PO SCH (09:29)
[2019-09-07] MEDS: HYDROCORTISONE 10 MG TAB PO SCH ×2 (09:30→17:04)
[2019-09-07] MEDS: Polyethylene Glycol 3350 17 GM Packet PO SCH (09:32)
[2019-09-07] MEDS: Enoxaparin Sodium 40 MG/0.4 ML SYRINGE SC SCH (09:32)
[2019-09-07] MEDS: Senokot S 8.6-50 MG TAB PO PRN (13:53)
[2019-09-07] MEDS: Ondansetron ODT 4 MG TAB PO PRN (14:27)
[2019-09-07] MEDS: ROBAXIN PO PRN (17:04)
[2019-09-07 18:15] VITALS: TEMP 97.8
[2019-09-07] MEDS: Atorvastatin Calcium 40 MG TAB PO SCH (21:57)
[2019-09-07] MEDS: Amlodipine 10 MG TAB PO SCH (21:58)
[2019-09-07] MEDS: Lisinopril 20 MG TAB PO SCH (21:58)
[2019-09-07] MEDS: Nystatin Powder 15 GM BOT TOP PRN (22:00)
[2019-09-08] MEDS: Levothyroxine Sodium 25 MCG TAB PO SCH (05:28)
[2019-09-08] MEDS: Levothyroxine Sodium 112 MCG TAB PO SCH (05:28)
[2019-09-08] MEDS: Acetaminophen/Codeine 30-300mg Tablet PO SCH ×2 (05:28→13:50)
[2019-09-08 06:08] VITALS: BP 126/60
[2019-09-08 08:00] LABS: Anion Gap 15 mmol/L (10-20); BUN (Urea Nitrogen) 18 mg/dL (9.8-20.1); Calc. Creatinine Clearance 139 mL/min (70-130); Calcium 9.8 mg/dL (7.8-10.44); Carbon Dioxide 28 mmol/L (23-31); Chloride 102 mmol/L (98-107); Estimated GFR-MDRD 66; Glucose 112 mg/dL (80-115); Potassium 4.2 mmol/L (3.5-5.1); Sodium 141 mmol/L (136-145)
[2019-09-08] MEDS: Enoxaparin Sodium 40 MG/0.4 ML SYRINGE SC SCH (09:36)
[2019-09-08] MEDS: Erythromycin Base 0.5% Ophth Oint 3.5 gm Tube R EYE SCH (09:38)
[2019-09-08] MEDS: Dicyclomine 20 MG TAB PO SCH ×2 (09:38→13:51)
[2019-09-08] MEDS: Saccharomyces boulardii 250 MG CAP PO SCH (09:39)
[2019-09-08] MEDS: Allopurinol 100 MG TAB PO SCH (09:39)
[2019-09-08] MEDS: Potassium Chloride 20 MEQ TAB PO SCH (09:39)
[2019-09-08] MEDS: Polyethylene Glycol 3350 17 GM Packet PO SCH (09:39)
[2019-09-08] MEDS: HYDROCORTISONE 10 MG TAB PO SCH (09:40)
--- NOTE | 2019-09-09 07:11 | DIS ---
DATE OF ADMISSION: 08/27/2019 DATE OF DISCHARGE: 09/08/2019 ADMISSION DIAGNOSES: 1. Hypokalemia. 2. Diarrhea. 3. Skin ulcers. 4. Candidal intertrigo. 5. Physical deconditioning. SECONDARY DIAGNOSES: 1. Morbid obesity. 2. Hypertension. 3. Dyslipidemia. 4. Hypothyroidism. 5. Chronic arthritis. 6. Type 2 diabetes mellitus. 7. Panhypopituitarism. PROCEDURES: None. HOSPITAL COURSE: This is a 68-year-old female, who presented to the [facility] Emergency Department with complaints of abdominal discomfort, for which she had fecal incontinence prior to being able to get within the emergency department. She does have a history of IBS, diarrhea predominant. She had taken Imodium prior to arrival. Workup in the emergency department revealed the patient to have mild leukocytosis with left shift along with a critical value of potassium level at 2.6. Evaluation of the patient showed her to have numerous skin ulcerations to bilateral lower extremities and an overall disheveled appearance related to underlying morbid obesity and insufficient care within her home. The patient was admitted for electrolyte repletion, IV hydration, initial concern for potential gastroenteritis, and need for wound care in regard to her skin ulcerations. The patient's potassium was corrected with an increase of her baseline dose of 20 mEq potassium up to 40 mEq potassium. She received routine wound care to her skin ulcerations along with treatment of candidal intertrigo. Leukocytosis quickly resolved and initiation of ciprofloxacin was discontinued after 3 days. The patient transitioned from acute inpatient to swing bed status for further skilled care including physical therapy, occupational therapy, and wound care. She did show some improvement during her stay in regard to her functional status; however, remains in a condition that is incompatible with independent care in her home setting. She was evaluated by [employer] Cur[employer]; however, could not afford to transition to assisted living or long term care phlebotomist nursing facility. It was decided for the patient to transition to live with her sister with further care to be provided by [facility], Home Health, and potentially [facility] as well. At this time, she is stable for discharge with normal labs and vital signs. DISPOSITION: The patient will be discharged to live with her sister locally and [facility] for [facility] care with physical therapy and occupational therapy. She may follow up with myself in a week. DISCHARGE MEDICATIONS: Include; 1. Potassium chloride 40 mEq p.o. daily. 2. Trulicity 1.5 mg once a week. 3. Levothyroxine 137 mcg daily. 4. Methocarbamol 750 mg q.4 hours p.r.n. 5. Atorvastatin 40 mg at bedtime. 6. Amlodipine 10 mg daily. 7. Tylenol with codeine q.8 hours. 8. Cortef 20 mg q.a.m. 9. Lisinopril 20 mg daily. 10. Allopurinol 200 mg daily. 11. Omeprazole 20 mg daily. 12. Nabumetone 500 mg b.i.d. 13. Magnesium oxide 400 mg daily. 14. Imodium 2 mg p.r.n. 15. Cortef 10 mg at bedtime. 16. Gabapentin 300 mg b.i.d. 17. Ergocalciferol 5000 units daily. 18. Vitamin B12 50 mcg daily. 19. Tylenol 150 mg q.6 hours p.r.n. 20. Hydrochlorothiazide 12.5 mg daily. Job ID: [id number] MTDD
== END 2019-09-08 15:50 | disposition home or self-care (01) | DRG 593 ==
LOC: BURMED 14:21
PROVIDERS: ADMIT Family Medicine; ATTEND Family Medicine
DX: L97.929 Non-pressure chronic ulcer of unspecified part of left lower leg with unspecified severity (principal); E23.0 Hypopituitarism; Z68.43 Body mass index [BMI] 50.0-59.9, adult; L97.919 Non-pressure chronic ulcer of unspecified part of right lower leg with unspecified severity; E87.6 Hypokalemia; R53.81 Other malaise; E66.01 Morbid (severe) obesity due to excess calories; I10 Essential (primary) hypertension; E78.5 Hyperlipidemia, unspecified; E03.9 Hypothyroidism, unspecified; M19.91 Primary osteoarthritis, unspecified site; K59.00 Constipation, unspecified; E11.9 Type 2 diabetes mellitus without complications; B37.2 Candidiasis of skin and nail; D72.829 Elevated white blood cell count, unspecified; Z91.041 Radiographic dye allergy status; Z88.6 Allergy status to analgesic agent; K21.9 Gastro-esophageal reflux disease without esophagitis; M10.9 Gout, unspecified
CPT/HCPCS: 36415; 36416; 80048; 82565; 85014; 85018; 85049; 90715; J1650; Q0162

== ENCOUNTER 2020-05-18 12:45 | Emergency (ER) | payer MEDICARE ==
[2020-05-18] MEDS ORDERED: HYDROcodone/Acetaminophen 10/325 mg Tablet ONE (12:58)
[2020-05-18] MEDS ORDERED: Ibuprofen 800 MG TAB ONE (12:58)
--- NOTE | 2020-05-18 15:00 | RAD ---
RIGHT KNEE FOUR VIEWS: 05/18/20 COMPARISON: Comparison is made with a 10/22/12 study. There is a line seen through the lateral tibial plateau that was not present before. Additionally on the views of the distal femur, there is some questionable sl ight sclerosis where the neck meets the condyles and on the lateral view there appears to be quite a step-off such as one might see with an impacted fracture here. Nevertheless, there does not appear to be any significant joint effusion. This makes me wonder if the findings are acute or not. They may h ave occurred since the 2012 study. I would recommend orthopedic referral and she may need an MRI to further investigate this knee. There has been considerable advancement of degenerative changes since before. Medial joint space narrowing an osteophytes are present. IMPRESSION: 1. Line in the lateral tibial plateau, a new finding. Step-off at the junction of the distal fem oral shaft and condyles. In the absence of a large joint effusion, I wonder about this being older tr auma than acute. Orthopedic referral recommended. 2. Osteoarthritis, particularly medial compartment. POS: HOME
[2020-05-18] MEDS ORDERED: Ondansetron PF 4 MG/2 ML Vial ONE (15:18)
[2020-05-18] MEDS ORDERED: Fentanyl 100 MCG/2 ML VIAL ONE (15:18)
[2020-05-18 15:25] LABS: #Basophils 0.1 thou/uL (0.0-0.2); #Eosinphils 0.1 thou/uL (0.0-0.7); #Lymphocytes 1.8 thou/uL (1.20-3.40); #Monocytes 0.6 thou/uL (0.11-0.59); #Neutrophils 10.6 thou/uL (1.40-6.50); %Basophils 0.6 % (0.0-1.0); %Eosinophils 0.9 % (0.0-10.0); %Lymphocytes 13.8 % (21.0-51.0); %Monocytes 4.6 % (0.0-10.0); %Neutrophils 80.2 % (42.0-75.0); Hemoglobin 12.7 g/dL (12.0-16.0); Mean Corpuscular Hemoglobin 28.6 pg (27.0-31.0); Platelet Count 291 thou/uL (130-400); RBC Distribution Width 14.5 % (11.5-14.5); Red Blood Cell (RBC) Count 4.46 mill/uL (4.20-5.40); White Blood Cell (WBC) Count 13.3 thou/uL (4.8-10.8)
[2020-05-18 15:36] LABS: ALT (SGPT) 16 U/L (8-55); AST (SGOT) 13 U/L (5-34); Albumin 3.8 g/dL (3.4-4.8); Alkaline Phosphatase 70 U/L (40-110); Anion Gap 20 mmol/L (10-20); BUN (Urea Nitrogen) 23 mg/dL (9.8-20.1); Bilirubin, Total 0.3 mg/dL (0.2-1.2); Calc. Creatinine Clearance 0 mL/min (70-130); Calcium 9.3 mg/dL (7.8-10.44); Carbon Dioxide 25 mmol/L (23-31); Chloride 97 mmol/L (98-107); Estimated GFR-MDRD 52; Globulin 2.7 g/dL (2.4-3.5); Glucose 232 mg/dL (80-115); Potassium 4.2 mmol/L (3.5-5.1); Protein, Total 6.5 g/dL (6.0-8.3); Sodium 138 mmol/L (136-145)
== END 2020-05-18 15:30 | disposition short-term general hospital (02) ==
LOC: BURERS 12:45
DX: S82.141A Displaced bicondylar fracture of right tibia, initial encounter for closed fracture (principal); S72.401A Unspecified fracture of lower end of right femur, initial encounter for closed fracture; I10 Essential (primary) hypertension; E66.9 Obesity, unspecified; E11.9 Type 2 diabetes mellitus without complications; J45.909 Unspecified asthma, uncomplicated; E78.5 Hyperlipidemia, unspecified; Z79.899 Other long term (current) drug therapy; Z79.4 Long term (current) use of insulin; X50.1XXA Overexertion from prolonged static or awkward postures, initial encounter
CPT/HCPCS: 80053; 85025; 96374; 96375; J2405; J3010

== ENCOUNTER 2021-07-01 16:12 | Inpatient (IN) | payer MEDICARE ==
[2021-07-01] MEDS ORDERED: Dextrose 5% in Water 1,000 ML IV PRN (18:46)
[2021-07-01] MEDS ORDERED: Dextrose 50% Abboject 50 ML SYRINGE SLOW IVP PRN (18:46)
[2021-07-01] MEDS: Allopurinol 100 MG TAB PO SCH (21:05)
[2021-07-01] MEDS: Lantus 1000 UNITS/10 ML VIAL SC SCH (21:05)
[2021-07-01] MEDS: Lisinopril 20 MG TAB PO SCH (21:06)
[2021-07-01] MEDS: Amlodipine 5 MG TAB PO SCH (21:06)
[2021-07-01] MEDS: HYDROcodone/Acetaminophen 5/325 mg Tablet PO PRN (21:06)
[2021-07-01] MEDS ORDERED: Hydrocortisone 10 mg Tablet PO SCH (21:30)
[2021-07-01] MEDS: VASCEPA PO SCH (21:34)
[2021-07-02] MEDS: HYDROcodone/Acetaminophen 5/325 mg Tablet PO PRN ×4 (03:56→19:33)
[2021-07-02] MEDS: Levothyroxine Sodium 100 MCG TAB PO SCH (05:34)
[2021-07-02] MEDS: Levothyroxine Sodium 25 MCG TAB PO SCH (05:34)
[2021-07-02] MEDS: Hydrocortisone 10 mg Tablet PO SCH ×2 (08:46→18:12)
[2021-07-02] MEDS: Enoxaparin Sodium 40 MG/0.4 ML SYRINGE SC SCH (08:46)
[2021-07-02] MEDS: Aspirin 325 MG TAB PO SCH (08:47)
[2021-07-02] MEDS: Cholecalciferol 1,000 UNITS (25 MCG) TAB PO SCH (08:47)
[2021-07-02] MEDS: Nystatin Powder 15 GM BOT TOP SCH ×2 (08:47→20:22)
[2021-07-02] MEDS: HumaLOG 300 UNITS/3 ML VIAL SC PRN ×4 (08:50→20:30)
[2021-07-02] MEDS: Atorvastatin Calcium 10 MG TAB PO SCH (08:50)
[2021-07-02] MEDS: Lantus 1000 UNITS/10 ML VIAL SC SCH ×2 (08:51→20:30)
[2021-07-02] MEDS: VASCEPA PO SCH ×2 (09:08→21:00)
[2021-07-02] MEDS: FOLATE PO SCH (09:09)
[2021-07-02] MEDS: INTRINSIC FACT PO SCH (09:09)
[2021-07-02] MEDS: VIT B12 PO SCH (09:09)
[2021-07-02] MEDS ORDERED: Hydrocortisone 10 mg Tablet PO SCH (18:00)
[2021-07-02] MEDS: Lisinopril 20 MG TAB PO SCH (20:21)
[2021-07-02] MEDS: Allopurinol 100 MG TAB PO SCH (20:21)
[2021-07-02] MEDS: Amlodipine 5 MG TAB PO SCH (20:21)
[2021-07-03] MEDS: HYDROcodone/Acetaminophen 5/325 mg Tablet PO PRN ×5 (00:46→20:28)
[2021-07-03] MEDS: Levothyroxine Sodium 25 MCG TAB PO SCH (05:02)
[2021-07-03] MEDS: Levothyroxine Sodium 100 MCG TAB PO SCH (05:02)
[2021-07-03] MEDS: Enoxaparin Sodium 40 MG/0.4 ML SYRINGE SC SCH (09:21)
[2021-07-03] MEDS: Fluconazole 100 MG TAB PO SCH (09:22)
[2021-07-03] MEDS: Atorvastatin Calcium 10 MG TAB PO SCH (09:22)
[2021-07-03] MEDS: Hydrocortisone 10 mg Tablet PO SCH ×2 (09:23→18:05)
[2021-07-03] MEDS: Cholecalciferol 1,000 UNITS (25 MCG) TAB PO SCH (09:25)
[2021-07-03] MEDS: VIT B12 PO SCH (09:32)
[2021-07-03] MEDS: INTRINSIC FACT PO SCH (09:32)
[2021-07-03] MEDS: VASCEPA PO SCH ×2 (09:32→20:29)
[2021-07-03] MEDS: FOLATE PO SCH (09:32)
[2021-07-03] MEDS: Lantus 1000 UNITS/10 ML VIAL SC SCH ×2 (09:33→20:26)
[2021-07-03] MEDS: Nystatin Powder 15 GM BOT TOP SCH ×2 (09:33→20:30)
[2021-07-03] MEDS: HumaLOG 300 UNITS/3 ML VIAL SC PRN ×4 (09:33→22:02)
[2021-07-03] MEDS: Aspirin 325 MG TAB PO SCH (09:34)
[2021-07-03] MEDS: Allopurinol 100 MG TAB PO SCH (20:27)
[2021-07-03] MEDS: Amlodipine 5 MG TAB PO SCH (20:27)
[2021-07-03] MEDS: Lisinopril 20 MG TAB PO SCH (20:27)
[2021-07-04] MEDS: HYDROcodone/Acetaminophen 5/325 mg Tablet PO PRN ×4 (02:46→20:04)
[2021-07-04] MEDS: Levothyroxine Sodium 100 MCG TAB PO SCH (05:47)
[2021-07-04] MEDS: Levothyroxine Sodium 25 MCG TAB PO SCH (05:47)
[2021-07-04] MEDS: Aspirin 325 MG TAB PO SCH (08:14)
[2021-07-04] MEDS: Enoxaparin Sodium 40 MG/0.4 ML SYRINGE SC SCH (08:14)
[2021-07-04] MEDS: Cholecalciferol 1,000 UNITS (25 MCG) TAB PO SCH (08:14)
[2021-07-04] MEDS: Atorvastatin Calcium 10 MG TAB PO SCH (08:14)
[2021-07-04] MEDS: Fluconazole 100 MG TAB PO SCH (08:15)
[2021-07-04] MEDS: Hydrocortisone 10 mg Tablet PO SCH ×2 (08:16→17:13)
[2021-07-04] MEDS: VASCEPA PO SCH ×2 (08:17→20:24)
[2021-07-04] MEDS: Nystatin Powder 15 GM BOT TOP SCH ×2 (08:28→20:23)
[2021-07-04] MEDS: HumaLOG 300 UNITS/3 ML VIAL SC PRN ×4 (08:29→20:19)
[2021-07-04] MEDS: Lantus 1000 UNITS/10 ML VIAL SC SCH ×2 (08:30→20:19)
[2021-07-04] MEDS: Allopurinol 100 MG TAB PO SCH (20:17)
[2021-07-04] MEDS: Lisinopril 20 MG TAB PO SCH (20:18)
[2021-07-04] MEDS: Amlodipine 5 MG TAB PO SCH (20:18)
[2021-07-05] MEDS: HYDROcodone/Acetaminophen 5/325 mg Tablet PO PRN ×4 (03:54→20:31)
[2021-07-05] MEDS: Levothyroxine Sodium 100 MCG TAB PO SCH (05:57)
[2021-07-05] MEDS: Levothyroxine Sodium 25 MCG TAB PO SCH (05:57)
[2021-07-05] MEDS: Enoxaparin Sodium 40 MG/0.4 ML SYRINGE SC SCH (09:09)
[2021-07-05] MEDS: Hydrocortisone 10 mg Tablet PO SCH ×2 (09:09→17:32)
[2021-07-05] MEDS: Aspirin 325 MG TAB PO SCH (09:09)
[2021-07-05] MEDS: Fluconazole 100 MG TAB PO SCH (09:10)
[2021-07-05] MEDS: Cholecalciferol 1,000 UNITS (25 MCG) TAB PO SCH (09:12)
[2021-07-05] MEDS: Atorvastatin Calcium 10 MG TAB PO SCH (09:12)
[2021-07-05] MEDS: Lantus 1000 UNITS/10 ML VIAL SC SCH ×2 (09:19→20:44)
[2021-07-05] MEDS: Nystatin Powder 15 GM BOT TOP SCH ×2 (09:24→20:34)
[2021-07-05] MEDS: VASCEPA PO SCH ×2 (09:25→20:48)
[2021-07-05] MEDS: HumaLOG 300 UNITS/3 ML VIAL SC PRN ×3 (12:37→20:46)
[2021-07-05] MEDS: Lisinopril 20 MG TAB PO SCH (20:30)
[2021-07-05] MEDS: Allopurinol 100 MG TAB PO SCH (20:30)
[2021-07-05] MEDS: Amlodipine 5 MG TAB PO SCH (20:30)
[2021-07-05 21:04] LABS: SARS-CoV-2 PCR by NAA Not Detected (NotDetected)
[2021-07-06] MEDS: HYDROcodone/Acetaminophen 5/325 mg Tablet PO PRN ×4 (02:40→20:37)
[2021-07-06] MEDS: Levothyroxine Sodium 100 MCG TAB PO SCH (05:22)
[2021-07-06] MEDS: Levothyroxine Sodium 25 MCG TAB PO SCH (05:22)
[2021-07-06] MEDS: Enoxaparin Sodium 40 MG/0.4 ML SYRINGE SC SCH (08:22)
[2021-07-06] MEDS: Hydrocortisone 10 mg Tablet PO SCH ×2 (08:22→17:36)
[2021-07-06] MEDS: Fluconazole 100 MG TAB PO SCH (08:23)
[2021-07-06] MEDS: Cholecalciferol 1,000 UNITS (25 MCG) TAB PO SCH (08:24)
[2021-07-06] MEDS: Atorvastatin Calcium 10 MG TAB PO SCH (08:24)
[2021-07-06] MEDS: Aspirin 325 MG TAB PO SCH (08:24)
[2021-07-06] MEDS: VASCEPA PO SCH ×2 (08:25→20:13)
[2021-07-06] MEDS: Lantus 1000 UNITS/10 ML VIAL SC SCH ×2 (08:25→20:15)
[2021-07-06] MEDS: Nystatin Powder 15 GM BOT TOP SCH ×2 (08:29→20:13)
[2021-07-06] MEDS: HumaLOG 300 UNITS/3 ML VIAL SC PRN ×2 (17:35→20:15)
[2021-07-06] MEDS: Allopurinol 100 MG TAB PO SCH (20:11)
[2021-07-06] MEDS: Lisinopril 20 MG TAB PO SCH (20:12)
[2021-07-06] MEDS: Amlodipine 5 MG TAB PO SCH (20:12)
[2021-07-07] MEDS: HYDROcodone/Acetaminophen 5/325 mg Tablet PO PRN ×4 (05:28→22:33)
[2021-07-07] MEDS: Levothyroxine Sodium 25 MCG TAB PO SCH (05:28)
[2021-07-07] MEDS: Levothyroxine Sodium 100 MCG TAB PO SCH (05:28)
[2021-07-07] MEDS: Aspirin 325 MG TAB PO SCH (08:50)
[2021-07-07] MEDS: Enoxaparin Sodium 40 MG/0.4 ML SYRINGE SC SCH (08:50)
[2021-07-07] MEDS: Fluconazole 100 MG TAB PO SCH (08:51)
[2021-07-07] MEDS: Hydrocortisone 10 mg Tablet PO SCH ×2 (08:51→17:40)
[2021-07-07] MEDS: Atorvastatin Calcium 10 MG TAB PO SCH (08:51)
[2021-07-07] MEDS: Cholecalciferol 1,000 UNITS (25 MCG) TAB PO SCH (08:54)
[2021-07-07] MEDS: Lantus 1000 UNITS/10 ML VIAL SC SCH ×2 (08:56→20:43)
[2021-07-07] MEDS: HumaLOG 300 UNITS/3 ML VIAL SC PRN ×4 (08:56→20:46)
[2021-07-07] MEDS: Nystatin Powder 15 GM BOT TOP SCH ×2 (08:57→20:50)
[2021-07-07] MEDS: VASCEPA PO SCH ×2 (08:57→20:59)
[2021-07-07] MEDS: Lisinopril 20 MG TAB PO SCH (20:42)
[2021-07-07] MEDS: Allopurinol 100 MG TAB PO SCH (20:42)
[2021-07-07] MEDS: Amlodipine 5 MG TAB PO SCH (20:43)
[2021-07-07] MEDS ORDERED: Fleet Enema 133 ML BOT PR PRN (22:36)
[2021-07-08] MEDS: Levothyroxine Sodium 25 MCG TAB PO SCH (05:04)
[2021-07-08] MEDS: HYDROcodone/Acetaminophen 5/325 mg Tablet PO PRN ×3 (05:04→20:52)
[2021-07-08] MEDS: Levothyroxine Sodium 100 MCG TAB PO SCH (05:05)
[2021-07-08] MEDS: Milk Of Magnesia 30 ML UDCUP PO PRN ×2 (05:05→21:12)
[2021-07-08] MEDS: HumaLOG 300 UNITS/3 ML VIAL SC PRN ×4 (08:26→21:04)
[2021-07-08] MEDS: Lantus 1000 UNITS/10 ML VIAL SC SCH ×2 (08:31→20:54)
[2021-07-08] MEDS: Cholecalciferol 1,000 UNITS (25 MCG) TAB PO SCH (08:33)
[2021-07-08] MEDS: Enoxaparin Sodium 40 MG/0.4 ML SYRINGE SC SCH (08:34)
[2021-07-08] MEDS: Aspirin 325 MG TAB PO SCH (08:34)
[2021-07-08] MEDS: Hydrocortisone 10 mg Tablet PO SCH ×2 (08:34→17:57)
[2021-07-08] MEDS: Atorvastatin Calcium 10 MG TAB PO SCH (08:34)
[2021-07-08] MEDS: Nystatin Powder 15 GM BOT TOP SCH ×2 (08:35→21:12)
[2021-07-08] MEDS: VASCEPA PO SCH ×2 (10:08→20:54)
[2021-07-08] MEDS: Amlodipine 5 MG TAB PO SCH (20:48)
[2021-07-08] MEDS: Amoxicillin/Potassium Clav 875 MG TAB PO SCH (20:48)
[2021-07-08] MEDS: Allopurinol 100 MG TAB PO SCH (20:49)
[2021-07-08] MEDS: Lisinopril 20 MG TAB PO SCH (20:53)
[2021-07-09] MEDS: HYDROcodone/Acetaminophen 5/325 mg Tablet PO PRN ×4 (00:33→21:36)
[2021-07-09] MEDS: Levothyroxine Sodium 100 MCG TAB PO SCH (05:23)
[2021-07-09] MEDS: Levothyroxine Sodium 25 MCG TAB PO SCH (05:23)
[2021-07-09] MEDS: Cholecalciferol 1,000 UNITS (25 MCG) TAB PO SCH (08:22)
[2021-07-09] MEDS: Amoxicillin/Potassium Clav 875 MG TAB PO SCH ×2 (08:22→21:30)
[2021-07-09] MEDS: Hydrocortisone 10 mg Tablet PO SCH ×2 (08:23→16:58)
[2021-07-09] MEDS: Enoxaparin Sodium 40 MG/0.4 ML SYRINGE SC SCH (08:23)
[2021-07-09] MEDS: Aspirin 325 MG TAB PO SCH (08:23)
[2021-07-09] MEDS: Atorvastatin Calcium 10 MG TAB PO SCH (08:23)
[2021-07-09] MEDS: Lantus 1000 UNITS/10 ML VIAL SC SCH ×2 (08:25→21:30)
[2021-07-09] MEDS: Senokot 8.6 MG TAB PO PRN (13:24)
[2021-07-09] MEDS: HumaLOG 300 UNITS/3 ML VIAL SC PRN ×2 (13:24→18:08)
[2021-07-09] MEDS: Nystatin Powder 15 GM BOT TOP SCH ×2 (13:25→21:30)
[2021-07-09] MEDS: VASCEPA PO SCH ×2 (13:25→21:30)
[2021-07-09] MEDS: Lisinopril 20 MG TAB PO SCH (21:29)
[2021-07-09] MEDS: Allopurinol 100 MG TAB PO SCH (21:29)
[2021-07-09] MEDS: Amlodipine 5 MG TAB PO SCH (21:30)
[2021-07-10] MEDS: Nystatin Powder 15 GM BOT TOP SCH ×2 (02:10→10:13)
[2021-07-10] MEDS: Levothyroxine Sodium 25 MCG TAB PO SCH (04:32)
[2021-07-10] MEDS: Levothyroxine Sodium 100 MCG TAB PO SCH (04:32)
[2021-07-10] MEDS: HYDROcodone/Acetaminophen 5/325 mg Tablet PO PRN ×3 (04:32→19:53)
[2021-07-10] MEDS: Aspirin 325 MG TAB PO SCH (10:10)
[2021-07-10] MEDS: Atorvastatin Calcium 10 MG TAB PO SCH (10:11)
[2021-07-10] MEDS: Amoxicillin/Potassium Clav 875 MG TAB PO SCH ×2 (10:11→20:42)
[2021-07-10] MEDS: Enoxaparin Sodium 40 MG/0.4 ML SYRINGE SC SCH (10:11)
[2021-07-10] MEDS: Cholecalciferol 1,000 UNITS (25 MCG) TAB PO SCH (10:11)
[2021-07-10] MEDS: Hydrocortisone 10 mg Tablet PO SCH ×2 (10:12→18:09)
[2021-07-10] MEDS: VASCEPA PO SCH ×2 (10:12→21:00)
[2021-07-10] MEDS: Lantus 1000 UNITS/10 ML VIAL SC SCH ×2 (10:13→20:43)
[2021-07-10] MEDS: HumaLOG 300 UNITS/3 ML VIAL SC PRN ×2 (13:22→18:09)
[2021-07-10] MEDS: Senokot 8.6 MG TAB PO PRN (13:22)
[2021-07-10] MEDS: Amlodipine 5 MG TAB PO SCH (20:42)
[2021-07-10] MEDS: Allopurinol 100 MG TAB PO SCH (20:42)
[2021-07-10] MEDS: Lisinopril 20 MG TAB PO SCH (20:43)
[2021-07-10] MEDS: Milk Of Magnesia 30 ML UDCUP PO PRN (21:47)
[2021-07-11] MEDS: HYDROcodone/Acetaminophen 5/325 mg Tablet PO PRN ×3 (04:11→17:03)
[2021-07-11] MEDS: Levothyroxine Sodium 25 MCG TAB PO SCH (04:12)
[2021-07-11] MEDS: Levothyroxine Sodium 100 MCG TAB PO SCH (04:12)
[2021-07-11] MEDS: Enoxaparin Sodium 40 MG/0.4 ML SYRINGE SC SCH (08:43)
[2021-07-11] MEDS: Hydrocortisone 10 mg Tablet PO SCH ×2 (08:43→17:03)
[2021-07-11] MEDS: Aspirin 325 MG TAB PO SCH (08:44)
[2021-07-11] MEDS: Amoxicillin/Potassium Clav 875 MG TAB PO SCH ×2 (08:44→21:52)
[2021-07-11] MEDS: Nystatin Powder 15 GM BOT TOP SCH ×2 (08:45→21:52)
[2021-07-11] MEDS: Lantus 1000 UNITS/10 ML VIAL SC SCH ×2 (08:45→21:53)
[2021-07-11] MEDS: Cholecalciferol 1,000 UNITS (25 MCG) TAB PO SCH (08:45)
[2021-07-11] MEDS: Atorvastatin Calcium 10 MG TAB PO SCH (08:45)
[2021-07-11] MEDS: HumaLOG 300 UNITS/3 ML VIAL SC PRN ×2 (08:46→16:38)
[2021-07-11] MEDS ORDERED: Polyethylene Glycol 3350 17 GM Packet PO SCH (10:30)
[2021-07-11] MEDS: VASCEPA PO SCH ×2 (12:25→21:00)
[2021-07-11] MEDS: Senokot 8.6 MG TAB PO PRN (18:33)
[2021-07-11] MEDS: Amlodipine 5 MG TAB PO SCH (21:52)
[2021-07-11] MEDS: Allopurinol 100 MG TAB PO SCH (21:52)
[2021-07-11] MEDS: Lisinopril 20 MG TAB PO SCH (21:52)
[2021-07-12] MEDS: HYDROcodone/Acetaminophen 5/325 mg Tablet PO PRN ×3 (01:20→21:17)
[2021-07-12] MEDS: Levothyroxine Sodium 100 MCG TAB PO SCH (05:44)
[2021-07-12] MEDS: Levothyroxine Sodium 25 MCG TAB PO SCH (05:44)
[2021-07-12] MEDS: Atorvastatin Calcium 10 MG TAB PO SCH (09:55)
[2021-07-12] MEDS: Hydrocortisone 10 mg Tablet PO SCH ×2 (09:55→17:15)
[2021-07-12] MEDS: Polyethylene Glycol 3350 17 GM Packet PO SCH (09:55)
[2021-07-12] MEDS: Aspirin 325 MG TAB PO SCH (09:55)
[2021-07-12] MEDS: Amoxicillin/Potassium Clav 875 MG TAB PO SCH (09:55)
[2021-07-12] MEDS: Cholecalciferol 1,000 UNITS (25 MCG) TAB PO SCH (09:56)
[2021-07-12] MEDS: Enoxaparin Sodium 40 MG/0.4 ML SYRINGE SC SCH (09:56)
[2021-07-12] MEDS: Nystatin Powder 15 GM BOT TOP SCH ×2 (09:59→21:01)
[2021-07-12] MEDS: VASCEPA PO SCH ×2 (10:00→21:01)
[2021-07-12] MEDS: Lantus 1000 UNITS/10 ML VIAL SC SCH ×2 (10:06→20:58)
[2021-07-12] MEDS: Senokot 8.6 MG TAB PO PRN (10:06)
[2021-07-12] MEDS: HumaLOG 300 UNITS/3 ML VIAL SC PRN ×3 (12:19→20:58)
[2021-07-12] MEDS ORDERED: Gentamicin Sulfate 80 MG in Premix Bag 1 BAG IVPB SCH (14:45)
[2021-07-12] MEDS ORDERED: Sulfameth/Trimethoprim DS 800-160mg TAB PO SCH (15:00)
[2021-07-12] MEDS: Sulfameth/Trimethoprim DS 800-160mg TAB PO SCH (20:59)
[2021-07-12] MEDS: Allopurinol 100 MG TAB PO SCH (20:59)
[2021-07-12] MEDS: Amlodipine 5 MG TAB PO SCH (21:00)
[2021-07-12] MEDS: Lisinopril 20 MG TAB PO SCH (21:00)
[2021-07-13] MEDS: Levothyroxine Sodium 25 MCG TAB PO SCH (06:08)
[2021-07-13] MEDS: Sulfameth/Trimethoprim DS 800-160mg TAB PO SCH ×3 (06:08→21:55)
[2021-07-13] MEDS: Levothyroxine Sodium 100 MCG TAB PO SCH (06:08)
[2021-07-13] MEDS: Lantus 1000 UNITS/10 ML VIAL SC SCH ×2 (09:46→21:54)
[2021-07-13] MEDS: HYDROcodone/Acetaminophen 5/325 mg Tablet PO PRN ×3 (09:47→22:07)
[2021-07-13] MEDS: Polyethylene Glycol 3350 17 GM Packet PO SCH (09:48)
[2021-07-13] MEDS: Senokot 8.6 MG TAB PO PRN (09:49)
[2021-07-13] MEDS: Enoxaparin Sodium 40 MG/0.4 ML SYRINGE SC SCH (09:49)
[2021-07-13] MEDS: Hydrocortisone 10 mg Tablet PO SCH ×2 (09:49→18:00)
[2021-07-13] MEDS: Cholecalciferol 1,000 UNITS (25 MCG) TAB PO SCH (09:50)
[2021-07-13] MEDS: Aspirin 325 MG TAB PO SCH (09:50)
[2021-07-13] MEDS: Atorvastatin Calcium 10 MG TAB PO SCH (09:50)
[2021-07-13] MEDS: Nystatin Powder 15 GM BOT TOP SCH ×2 (09:50→21:59)
[2021-07-13] MEDS: VASCEPA PO SCH ×2 (09:51→21:57)
[2021-07-13] MEDS: HumaLOG 300 UNITS/3 ML VIAL SC PRN (18:00)
[2021-07-13] MEDS: Amlodipine 5 MG TAB PO SCH (21:55)
[2021-07-13] MEDS: Allopurinol 100 MG TAB PO SCH (21:56)
[2021-07-13] MEDS: Lisinopril 20 MG TAB PO SCH (21:56)
[2021-07-14] MEDS: HYDROcodone/Acetaminophen 5/325 mg Tablet PO PRN ×3 (04:01→17:27)
[2021-07-14] MEDS: Sulfameth/Trimethoprim DS 800-160mg TAB PO SCH ×3 (05:20→21:32)
[2021-07-14] MEDS: Levothyroxine Sodium 100 MCG TAB PO SCH (05:20)
[2021-07-14] MEDS: Levothyroxine Sodium 25 MCG TAB PO SCH (05:20)
[2021-07-14] MEDS: Lantus 1000 UNITS/10 ML VIAL SC SCH ×2 (09:04→21:34)
[2021-07-14] MEDS: Hydrocortisone 10 mg Tablet PO SCH ×2 (09:04→17:28)
[2021-07-14] MEDS: Enoxaparin Sodium 40 MG/0.4 ML SYRINGE SC SCH (09:04)
[2021-07-14] MEDS: Polyethylene Glycol 3350 17 GM Packet PO SCH (09:04)
[2021-07-14] MEDS: Cholecalciferol 1,000 UNITS (25 MCG) TAB PO SCH (09:05)
[2021-07-14] MEDS: Aspirin 325 MG TAB PO SCH (09:05)
[2021-07-14] MEDS: Atorvastatin Calcium 10 MG TAB PO SCH (09:06)
[2021-07-14] MEDS: VASCEPA PO SCH ×2 (09:06→21:51)
[2021-07-14] MEDS: Nystatin Powder 15 GM BOT TOP SCH ×2 (09:14→21:36)
[2021-07-14] MEDS: Senokot 8.6 MG TAB PO PRN (09:18)
[2021-07-14 15:29] LABS: SARS-CoV-2 PCR by NAA Not Detected (NotDetected)
[2021-07-14] MEDS: HumaLOG 300 UNITS/3 ML VIAL SC PRN (17:29)
[2021-07-14] MEDS: Lisinopril 20 MG TAB PO SCH (21:32)
[2021-07-14] MEDS: Allopurinol 100 MG TAB PO SCH (21:33)
[2021-07-14] MEDS: Amlodipine 5 MG TAB PO SCH (21:33)
[2021-07-15] MEDS: HYDROcodone/Acetaminophen 5/325 mg Tablet PO PRN ×4 (00:03→20:59)
[2021-07-15] MEDS: Levothyroxine Sodium 100 MCG TAB PO SCH (05:29)
[2021-07-15] MEDS: Sulfameth/Trimethoprim DS 800-160mg TAB PO SCH ×3 (05:29→20:58)
[2021-07-15] MEDS: Levothyroxine Sodium 25 MCG TAB PO SCH (05:29)
[2021-07-15] MEDS: Polyethylene Glycol 3350 17 GM Packet PO SCH (09:18)
[2021-07-15] MEDS: Enoxaparin Sodium 40 MG/0.4 ML SYRINGE SC SCH (09:19)
[2021-07-15] MEDS: Senokot 8.6 MG TAB PO PRN (09:20)
[2021-07-15] MEDS: Atorvastatin Calcium 10 MG TAB PO SCH (09:20)
[2021-07-15] MEDS: Cholecalciferol 1,000 UNITS (25 MCG) TAB PO SCH (09:20)
[2021-07-15] MEDS: Hydrocortisone 10 mg Tablet PO SCH ×2 (09:21→17:08)
[2021-07-15] MEDS: Aspirin 325 MG TAB PO SCH (09:21)
[2021-07-15] MEDS: Nystatin Powder 15 GM BOT TOP SCH ×2 (09:26→21:06)
[2021-07-15] MEDS: VASCEPA PO SCH ×2 (09:29→21:04)
[2021-07-15] MEDS: Lantus 1000 UNITS/10 ML VIAL SC SCH ×2 (09:30→21:01)
[2021-07-15] MEDS: HumaLOG 300 UNITS/3 ML VIAL SC PRN (17:07)
[2021-07-15] MEDS: Allopurinol 100 MG TAB PO SCH (21:02)
[2021-07-15] MEDS: Lisinopril 20 MG TAB PO SCH (21:02)
[2021-07-15] MEDS: Amlodipine 5 MG TAB PO SCH (21:03)
[2021-07-16] MEDS: HYDROcodone/Acetaminophen 5/325 mg Tablet PO PRN ×3 (03:52→21:14)
[2021-07-16] MEDS: Levothyroxine Sodium 100 MCG TAB PO SCH (05:33)
[2021-07-16] MEDS: Sulfameth/Trimethoprim DS 800-160mg TAB PO SCH ×3 (05:33→21:13)
[2021-07-16] MEDS: Levothyroxine Sodium 25 MCG TAB PO SCH (05:33)
[2021-07-16] MEDS: Aspirin 325 MG TAB PO SCH (09:05)
[2021-07-16] MEDS: Polyethylene Glycol 3350 17 GM Packet PO SCH (09:05)
[2021-07-16] MEDS: Senokot 8.6 MG TAB PO PRN (09:05)
[2021-07-16] MEDS: Cholecalciferol 1,000 UNITS (25 MCG) TAB PO SCH (09:05)
[2021-07-16] MEDS: Atorvastatin Calcium 10 MG TAB PO SCH (09:05)
[2021-07-16] MEDS: Hydrocortisone 10 mg Tablet PO SCH ×2 (09:05→17:22)
[2021-07-16] MEDS: Nystatin Powder 15 GM BOT TOP SCH ×2 (09:07→21:00)
[2021-07-16] MEDS: Enoxaparin Sodium 40 MG/0.4 ML SYRINGE SC SCH (09:07)
[2021-07-16] MEDS: Lantus 1000 UNITS/10 ML VIAL SC SCH ×2 (09:46→21:15)
[2021-07-16] MEDS: VASCEPA PO SCH ×2 (09:46→21:00)
[2021-07-16] MEDS: HumaLOG 300 UNITS/3 ML VIAL SC PRN ×2 (12:08→17:23)
[2021-07-16] MEDS: Lisinopril 20 MG TAB PO SCH (21:14)
[2021-07-16] MEDS: Allopurinol 100 MG TAB PO SCH (21:14)
[2021-07-17] MEDS: Sulfameth/Trimethoprim DS 800-160mg TAB PO SCH (05:33)
[2021-07-17] MEDS: Levothyroxine Sodium 25 MCG TAB PO SCH (05:33)
[2021-07-17] MEDS: Levothyroxine Sodium 100 MCG TAB PO SCH (05:33)
[2021-07-17] MEDS: Cholecalciferol 1,000 UNITS (25 MCG) TAB PO SCH (08:35)
[2021-07-17] MEDS: Hydrocortisone 10 mg Tablet PO SCH ×2 (08:35→17:13)
[2021-07-17] MEDS: Atorvastatin Calcium 10 MG TAB PO SCH (08:35)
[2021-07-17] MEDS: Senokot 8.6 MG TAB PO PRN (08:35)
[2021-07-17] MEDS: Polyethylene Glycol 3350 17 GM Packet PO SCH (08:35)
[2021-07-17] MEDS: Aspirin 325 MG TAB PO SCH (08:35)
[2021-07-17] MEDS: HYDROcodone/Acetaminophen 5/325 mg Tablet PO PRN ×3 (08:36→22:04)
[2021-07-17] MEDS: Enoxaparin Sodium 40 MG/0.4 ML SYRINGE SC SCH (08:36)
[2021-07-17] MEDS: Lantus 1000 UNITS/10 ML VIAL SC SCH ×2 (08:37→20:35)
[2021-07-17] MEDS: Nystatin Powder 15 GM BOT TOP SCH ×2 (08:42→20:37)
[2021-07-17] MEDS: VASCEPA PO SCH (09:56)
[2021-07-17] MEDS: Ondansetron ODT 4 MG TAB PO PRN (10:21)
[2021-07-17] MEDS: HumaLOG 300 UNITS/3 ML VIAL SC PRN (17:13)
[2021-07-17] MEDS: Allopurinol 100 MG TAB PO SCH (20:36)
[2021-07-17] MEDS: Fish Oil 1,000 MG CAP PO SCH (20:36)
[2021-07-17] MEDS: Lisinopril 20 MG TAB PO SCH (20:37)
[2021-07-18] MEDS: Levothyroxine Sodium 100 MCG TAB PO SCH (05:14)
[2021-07-18] MEDS: Levothyroxine Sodium 25 MCG TAB PO SCH (05:14)
[2021-07-18] MEDS: Enoxaparin Sodium 40 MG/0.4 ML SYRINGE SC SCH (08:51)
[2021-07-18] MEDS: Lantus 1000 UNITS/10 ML VIAL SC SCH ×3 (08:51→21:09)
[2021-07-18] MEDS: Cholecalciferol 1,000 UNITS (25 MCG) TAB PO SCH (08:52)
[2021-07-18] MEDS: Atorvastatin Calcium 10 MG TAB PO SCH (08:52)
[2021-07-18] MEDS: Hydrocortisone 10 mg Tablet PO SCH ×2 (08:53→17:18)
[2021-07-18] MEDS: Aspirin 325 MG TAB PO SCH (08:53)
[2021-07-18] MEDS: Fish Oil 1,000 MG CAP PO SCH ×2 (08:54→21:07)
[2021-07-18] MEDS: Polyethylene Glycol 3350 17 GM Packet PO SCH (08:55)
[2021-07-18] MEDS: HYDROcodone/Acetaminophen 5/325 mg Tablet PO PRN ×3 (08:58→21:08)
[2021-07-18 10:07] VITALS: BMI 54.8
[2021-07-18] MEDS: HumaLOG 300 UNITS/3 ML VIAL SC PRN ×2 (12:27→17:17)
[2021-07-18] MEDS: Nystatin Powder 15 GM BOT TOP SCH ×2 (13:30→21:10)
[2021-07-18] MEDS: Allopurinol 100 MG TAB PO SCH (21:07)
[2021-07-18] MEDS: Lisinopril 20 MG TAB PO SCH (21:08)
[2021-07-19] MEDS: HYDROcodone/Acetaminophen 5/325 mg Tablet PO PRN ×4 (01:17→22:20)
[2021-07-19] MEDS: Levothyroxine Sodium 25 MCG TAB PO SCH (05:16)
[2021-07-19] MEDS: Levothyroxine Sodium 100 MCG TAB PO SCH (05:16)
[2021-07-19] MEDS: Enoxaparin Sodium 40 MG/0.4 ML SYRINGE SC SCH (08:23)
[2021-07-19] MEDS: Cholecalciferol 1,000 UNITS (25 MCG) TAB PO SCH (08:23)
[2021-07-19] MEDS: Atorvastatin Calcium 10 MG TAB PO SCH (08:24)
[2021-07-19] MEDS: Hydrocortisone 10 mg Tablet PO SCH ×2 (08:24→17:51)
[2021-07-19] MEDS: Fish Oil 1,000 MG CAP PO SCH ×2 (08:24→20:01)
[2021-07-19] MEDS: Aspirin 325 MG TAB PO SCH (08:25)
[2021-07-19] MEDS: Lantus 1000 UNITS/10 ML VIAL SC SCH ×2 (08:29→20:01)
[2021-07-19] MEDS: Polyethylene Glycol 3350 17 GM Packet PO SCH (08:30)
[2021-07-19] MEDS: Ondansetron ODT 4 MG TAB PO PRN (08:46)
[2021-07-19] MEDS: HumaLOG 300 UNITS/3 ML VIAL SC PRN ×2 (12:43→17:35)
[2021-07-19] MEDS: Nystatin Powder 15 GM BOT TOP SCH ×2 (12:44→20:00)
[2021-07-19] MEDS: Senokot 8.6 MG TAB PO PRN (17:34)
[2021-07-19] MEDS: Allopurinol 100 MG TAB PO SCH (20:00)
[2021-07-19] MEDS: Lisinopril 20 MG TAB PO SCH (20:00)
[2021-07-20] MEDS: Levothyroxine Sodium 25 MCG TAB PO SCH (05:59)
[2021-07-20] MEDS: Levothyroxine Sodium 100 MCG TAB PO SCH (05:59)
[2021-07-20] MEDS: Lantus 1000 UNITS/10 ML VIAL SC SCH (08:25)
[2021-07-20] MEDS: Enoxaparin Sodium 40 MG/0.4 ML SYRINGE SC SCH (08:26)
[2021-07-20] MEDS: Polyethylene Glycol 3350 17 GM Packet PO SCH (08:26)
[2021-07-20] MEDS: Cholecalciferol 1,000 UNITS (25 MCG) TAB PO SCH (08:26)
[2021-07-20] MEDS: Atorvastatin Calcium 10 MG TAB PO SCH (08:26)
[2021-07-20] MEDS: Hydrocortisone 10 mg Tablet PO SCH ×2 (08:26→17:15)
[2021-07-20] MEDS: Aspirin 325 MG TAB PO SCH (08:27)
[2021-07-20] MEDS: Fish Oil 1,000 MG CAP PO SCH (08:40)
[2021-07-20] MEDS: Nystatin Powder 15 GM BOT TOP SCH (08:40)
[2021-07-20] MEDS: HYDROcodone/Acetaminophen 5/325 mg Tablet PO PRN ×2 (10:13→17:17)
[2021-07-20 16:36] VITALS: BP 145/68; TEMP 97.8
[2021-07-20] MEDS: HumaLOG 300 UNITS/3 ML VIAL SC PRN (17:15)
[2021-07-20] MEDS: Ondansetron ODT 4 MG TAB PO PRN (17:17)
== END 2021-07-20 18:45 | DRG 947 ==
LOC: BURMED 16:25
PROVIDERS: ADMIT Family Medicine; ATTEND Family Medicine
DX: R53.81 Other malaise (principal); A41.9 Sepsis, unspecified organism; E27.40 Unspecified adrenocortical insufficiency; L02.214 Cutaneous abscess of groin; Z68.43 Body mass index [BMI] 50.0-59.9, adult; Z20.822 Contact with and (suspected) exposure to COVID-19; E11.9 Type 2 diabetes mellitus without complications; I10 Essential (primary) hypertension; E78.5 Hyperlipidemia, unspecified; E03.9 Hypothyroidism, unspecified; F32.A Depression, unspecified; E66.01 Morbid (severe) obesity due to excess calories; B37.2 Candidiasis of skin and nail; R26.89 Other abnormalities of gait and mobility
CPT/HCPCS: 36416; 87070; 87077; 87186; 87205; J1650; J1815; Q0162; U0003; U0005